=== PATIENT | female | born 1960 | race Caucasian/White ===

== ENCOUNTER 2018-02-22 14:33 | Emergency (ER) | payer OTHER ==
[~2018-02-22] VITALS: Ht 175.3 cm; Wt 74.8 kg
[2018-02-22] MEDS ORDERED: CENTRUM SILVER1 EAC4 PO (14:42)
[2018-02-22] MEDS ORDERED: AMITRIPTYLINE H50 M2 PO (14:42)
[2018-02-22] MEDS ORDERED: CELEXA20 MG PO (14:43)
[2018-02-22 15:00] LABS: HEMATOCRIT 38.4 % (37.0-47.0); MCH 29.5 pg (26.0-34.0); MCV 86.9 fL (80.0-100.0); MPV 9.2 fl. (7.2-11.1); NUCLEATED RBCS 0 /100WBC; PLATELET COUNT* 148 thou/uL (150-400); RBC 4.42 mil/uL (4.20-5.00); RDW-CV 13.5 % (10.5-14.5); WBC 3.6 thou/uL (4.0-11.0)
[2018-02-22 15:08] LABS: ANION GAP 7 mmol/L (7-16); BUN 10 mg/dL (7-18); CALCIUM 8.4 mg/dL (8.5-10.1); CHLORIDE 103 mmol/L (98-107); CO2 30 mmol/L (21-32); CREATININE 0.9 mg/dL (0.6-1.3); GLUCOSE 95 mg/dL (70-99); POTASSIUM 3.4 mmol/L (3.5-5.1); SODIUM 140 mmol/L (136-145)
[2018-02-22 15:19] LABS: ALBUMIN 3.5 g/dL (3.4-5.0); ALKALINE PHOSPHATASE 80 U/L (46-116); LIPASE 232 U/L (73-393); NT-PRO BRAIN NAT PEPTIDE 44 pg/mL (<300); PROTIME 10.5 Seconds (9.20-11.50); SGOT 38 U/L (15-37); SGPT 64 U/L (30-65); TOTAL BILIRUBIN 0.8 mg/dL (<0.1-1.0); TOTAL PROTEIN 6.7 g/dL (6.4-8.2); TROPONIN-I LEVEL <0.06 ng/mL (<0.06)
[2018-02-22 15:26] LABS: ABSOLUTE LYMPHOCYTES 0.3 thou/uL (0.8-5.3); ABSOLUTE MONOCYTES 0.4 thou/uL (0.0-1.2); ABSOLUTE NEUTROPHILS 2.9 thou/uL (1.6-8.1); PLATELET ESTIMATE ADEQUATE
[2018-02-22 18:02] VITALS: BP 127/67
--- NOTE | 2018-02-23 18:05 | EKG ---
[place] [address] ELECTROCARDIOGRAM REPORT Name: ILYA HARDIN Room: [facility]#: [id number] Admission: 02/22/18 Attend Phys: Discharge: 02/22/18 Date of : 64 Report #: [id number] THIS REPORT FOR: //name// [facility] ED Test Date: 2018-02-22 Test Time: 14:39:32 Pat Name: ILYA HARDIN Department: Room: Gender: F Press Set Up: WERNER : 1960 Requested By: Gilbert Martini Order Number: [id number] MD: Nader Post Measurements Intervals [place] Rate: 80 P: -14 OH: 114 QRS: 62 QRSD: 99 T: 61 QT: 392 QTc: 453 Interpretive Statements Sinus rhythm Borderline short [place] interval No previous ECG available for comparison Electronically Signed On 02-23-2018 18:04:52 [employer] by Nader Post [email or web address] <ELECTRONICALLY SIGNED> By: Nader Post MD, [facility] 02/23/18 1804 1439 1439 Nader Post MD, FACC /EPI
== END 2018-02-22 18:02 | disposition home or self-care (01) ==
LOC: M.ERS 14:33
PROVIDERS: Emergency Medicine
DX: R07.89 Other chest pain (principal); L53.9 Erythematous condition, unspecified; F32.9 Major depressive disorder, single episode, unspecified; Z90.710 Acquired absence of both cervix and uterus